=== PATIENT | female | born 1955 | race Caucasian/White ===

== ENCOUNTER 2016-10-06 07:34 | Emergency (ER) | payer BC ==
[2016-10-06] MEDS ORDERED: MORPHINE SULFATE 5 MG/ML PFS IVP ONE (08:12)
[2016-10-06] MEDS ORDERED: ONDANSETRON HCL IV 4 MG/2 ML VIAL IVP ONE (08:13)
[2016-10-06] MEDS ORDERED: 0.9 % SODIUM CHLORIDE 1000ML 500 ML IV SCH (08:15)
--- NOTE | 2016-10-06 08:18 | Emergency Department Record ---
History of Present Illness - General Chief complaint: Lower Extremity Pain Stated complaint: PAIN R LEG Time Seen by Provider: 10/06/16 08:12 Source: Patient Mode of Arrival: Ambulatory Limitations: No limitations - History of Present Illness Initial comments: 61 yo female presents to ED with a CC of right posterior leg pain radiating up to her right lower back that began yesterday. Patient denies injury or trauma, and patient denies fevers, chills, or recent illness. Patient denies flank pain or urinary symptoms, but the patient reports that she is unable to get comfortable. Patient reports history of DM II. MD Complaint: Extremity pain Onset/Timin -: Days(s) Location: Right, Lower Leg, Thigh Radiation: Proximal Severity scale (1-10): 10 Consistency: Constant Improves with: Nothing Worsens with: Nothing Associated Symptoms: Denies other symptoms - Related Data Home Medications Medication Instructions Recorded Confirmed Last Taken Benzonatate [Tessalon] 2 cap PO Q8H PRN 10/06/16 10/06/16 Unknown Glimepiride [Amaryl] 4 mg PO DAILY 10/06/16 10/06/16 Unknown Meclizine HCl [Antivert] 25 mg PO Q8H 10/06/16 10/06/16 Unknown Previous Rx's Medication Instructions Recorded Diazepam [Valium] 5 mg PO Q8H #10 tab 10/06/16 Naproxen [Naprosyn] 500 mg PO Q12H #30 tab 10/06/16 Allergies Allergy/AdvReac Type Severity Reaction Status Date / Time No Known Drug Allergies Allergy Verified 10/06/16 07:36 Travel Screening - Travel/Exposure Within Last 30 Days Have you traveled within the last 30 days?: No - Travel Symptoms Symptom Screening: None Review of Systems Constitutional: Denies: Chills, Fever, Malaise, Night sweats Eyes: Denies: Eye discharge, Eye pain ENT: Denies: Congestion, Ear pain, Epistaxis Respiratory: Denies: Cough, Dyspnea Cardiovascular: Denies: Chest pain, Dyspnea on exertion Endocrine: Denies: Fatigue, Heat or cold intolerance Gastrointestinal: Denies: Abdominal pain, Nausea, Vomiting Genitourinary: Denies: Dysuria, Frequency, Hematuria, Incontinence Musculoskeletal: Reports: Back pain, Myalgia. Denies: Gout, Joint swelling Skin: Denies: Bruising, Change in color Neurological: Denies: Abnormal gait, Confusion, Headache, Seizure Psychiatric: Denies: Anxiety Hematological/Lymphatic: Denies: Anemia, Blood Clots Past Medical History - SOCIAL HISTORY Smoking Status: Never smoker - RESPIRATORY Hx Respiratory Disorders: No - CARDIOVASCULAR Hx Cardio Disorders: No - NEURO Hx Neuro Disorders: No - GI Hx GI Disorders: Yes Hx Reflux: Yes - Hx Genitourinary Disorders: No - ENDOCRINE Hx Endocrine Disorders: Yes Hx Diabetes: Yes - MUSCULOSKELETAL Hx Musculoskeletal Disorders: Yes Hx Arthritis: Yes Comment:: Herpes zoster - PSYCH Hx Psych Problems: Yes Hx Depression: Yes - HEMATOLOGY/ONCOLOGY Hx Hematology/Oncology Disorders: No Family Medical History Any Significant Family History?: Yes Hx Cancer: Father, Grandparents Hx Diabetes: Mother Hx Heart Disease: Father Hx HTN: Father Physical Exam - General General Appearance: Alert, Oriented x3, Cooperative, Moderate distress, Other ( patient is tearful on examination, appears uncomfortable on examination.) - Head Head exam: Atraumatic, Normocephalic, Normal inspection Head exam detail: negative: Abrasion, Contusion, Polanco's sign, General tenderness, Hematoma, Laceration - Eye Eye exam: Normal appearance. negative: Conjunctival injection, Periorbital swelling, Periorbital tenderness, Scleral icterus - ENT Ear exam: negative: Auricular hematoma, Auricular trauma Nasal Exam: negative: Active bleeding, Discharge, Dried blood, Foreign body Mouth exam: negative: Drooling, Laceration, Muffled voice, Tongue elevation - Neck Neck exam: Normal inspection. negative: Meningismus, Tenderness - Respiratory Respiratory exam: Normal lung sounds bilaterally. negative: Rales, Respiratory distress, Rhonchi, Stridor - Cardiovascular Cardiovascular Exam: Regular rate, Normal rhythm, Normal heart sounds Peripheral Pulses: 3+: Dorsalis Pedis (R) - GI/Abdominal GI/Abdominal exam: Soft. negative: Rebound, Rigid, Tenderness - Rectal Rectal exam: Deferred - exam: Deferred - Extremities Extremities exam: Full ROM, Tenderness, Other (mild TTP along the popliteal region, posterior thigh, no evidence for knee effusion or septic joint, no flank pain on examination ). negative: Calf tenderness, Pedal edema - Back Back exam: Denies: CVA tenderness (R), CVA tenderness (L) - Neurological Neurological exam: Alert, Oriented X3 - Psychiatric Psychiatric exam: Normal affect, Normal mood - Skin Skin exam: Normal color. negative: Abrasion Type of lesion: negative: abrasion Course Vital Signs 10/06/16 07:50 Temperature 97.8 F Pulse Rate 108 H Respiratory 18 Rate Blood Pressure 139/97 Pulse Ox 97 - Reevaluation(s) Reevaluation #1: 10/06/16 09:03 Labs reviewed and are grossly unremarkable for an acute process. Patient is currently in US for evaluation. Reevaluation #2: 10/06/16 09:47 US doppler LE: No acute DVT Patient reassessed, reports that Morphine "did not help with my pain symptoms at all". Patient ambulated with steady gait to the bathroom to obtain UA sample. Will order Valium 2.5 mg IV. Reevaluation #3: 10/06/16 10:17 UA reviewed, appears contaminated, but only trace blood. Symptoms and the patient's UA do not appear c/w kidney stone. Patient appears stable for discharge home on Valium and Naprosyn for her back pain symptoms. Reevaluation #4: 10/06/16 10:23 Patient was updated on her results, and reports improvement in her symptoms following Valium IV. Patient appears stable for discharge at this time. Medical Decision Making - Lab Data Result diagrams: 10/06/16 08:30 10/06/16 08:30 Disposition Disposition: Discharge Clinical Impression: Low back pain Qualifiers: Chronicity: acute Back pain laterality: right Sciatica presence: with sciatica Sciatica laterality: sciatica of right side Qualified Code(s): M54.41 - Lumbago with sciatica, right side Disposition: Home, Self-Care Condition: (2) Stable Instructions: Low Back Strain (ED) Additional Instructions: Return to ED if your symptoms worsen or if you have any concerns. Valium and Naprosyn as directed. Follow-up with your family doctor in 1-3 days as directed. Prescriptions: Naproxen [Naprosyn] 500 mg PO Q12H #30 tab. Diazepam [Valium] 5 mg PO Q8H #10 tab Forms: Patient Portal Access Time of Disposition: 10:19
[2016-10-06 08:42] LABS: BASO % 0.3 % (0-6); EOS % 1.7 % (0-6); GRAN % 57.3 % (47-80); HEMATOCRIT 48.1 % (35.0-47.0); HEMOGLOBIN 16.1 gm/dl (11.6-16.0); LYMPH % 29.6 % (16-45); MEAN CELL VOLUME 82.2 fl (81-97); MEAN CORPUSCULAR HEMOGLOBIN 27.5 pg (27-33); MEAN CORPUSCULAR HGB CONC 33.5 g/dl (32-36); MEAN PLATELET VOLUME 11.4 fl (7.4-10.4); MONO % 11.1 % (0-9); PLATELET COUNT 193 K/uL (130-400); RED BLOOD COUNT 5.85 M/uL (3.80-5.40); WHITE BLOOD COUNT W/O DIFF 5.9 K/uL (4.2-12.2)
[2016-10-06 08:56] LABS: ALB/GLOB RATIO 1.5 (1.1-1.8); ALKALINE PHOSPHATASE 101 U/L (38-126); ALT/SGPT 62 U/L (9-52); ANION GAP 18.7 (7-16); AST/SGOT 34 U/L (14-36); BLOOD UREA NITROGEN 16 mg/dL (7-17); CARBON DIOXIDE 28.3 mmol/L (22-30); CREATININE 0.7 mg/dL (0.52-1.04); EST GLOMERULAR FILTRATION RATE > 60 ml/min; GLUCOSE,RANDOM 188 mg/dL (70-110); TOTAL PROTEIN 8.4 gm/dL (6.3-8.2)
[2016-10-06] MEDS ORDERED: DIAZEPAM 5 MG/1 ML TUBX IVP ONE (09:48)
[2016-10-06 09:55] LABS: URINE APPEARANCE CLEAR; URINE BILIRUBIN NEGATIVE (NEGATIVE); URINE BLOOD TRACE-I (NEGATIVE); URINE COLOR YELLOW; URINE KETONE 15 mg/dL (NEGATIVE); URINE LEUKOCYTE ESTERASE NEGATIVE (NEGATIVE); URINE NITRITE NEGATIVE (NEGATIVE); URINE PROTEIN NEGATIVE (NEGATIVE); URINE UROBILINOGEN 0.2 E.U./dL (0.20 - 1.00)
[2016-10-06 10:04] LABS: URINE GLUCOSE (UA) >=1000 mg/dL (NEGATIVE)
[2016-10-06 10:05] LABS: URINE BACTERIA FEW; URINE EPITHELIAL CELLS 36 - 50 (FEW); URINE WBC >50 (0-2/hpf)
--- NOTE | 2016-10-12 08:42 | US VENOUS DOPPLER REPORT ---
EXAM: EMERGENCY VENOUS DOPPLER ULTRASOUND OF THE RIGHT LOWER EXTREMITY HISTORY: RIGHT LOWER EXTREMITY PAIN. WOKE UP YESTERDAY WITH RIGHT LEG PAIN AND RIGHT KNEE PAIN. POSSIBLE DVT. TECHNIQUE: Venous Doppler ultrasound of the right lower extremity was performed with color flow and spectral analysis Doppler utilized. In addition, compression and flow augmentation maneuvers were utilized in the thigh and popliteal region. Comparison: None. FINDINGS: No evidence of DVT identified in the right lower extremity. Flow is seen with color flow and spectral analysis throughout the veins of the right lower extremity from the level of the common femoral vein down into the calf including the anterior and posterior tibial veins and peroneal vein. Flow augmentation and compressibility was seen in the veins of the thigh and popliteal region as well. IMPRESSION: NEGATIVE VENOUS DOPPLER ULTRASOUND OF THE RIGHT LOWER EXTREMITY WITH NO DVT IDENTIFIED. JOB NUMBER: [id number] MTDD
== END 2016-10-06 10:50 | disposition home or self-care (01) ==
LOC: ER 07:34
DX: M54.41 Lumbago with sciatica, right side (principal); E11.9 Type 2 diabetes mellitus without complications
CPT/HCPCS: 99284 ×2; 96374; 96375; 85025; 80053; 81001; 93971; J2405; J2270; J3360; J7030

== ENCOUNTER 2017-07-24 11:27 | Emergency (ER) | payer SELFPAY ==
[2017-07-24] MEDS ORDERED: KETOROLAC 30 MG/ML VIAL IM ONE (11:46)
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
[2017-07-24 12:07] LABS: URINE APPEARANCE CLEAR; URINE BILIRUBIN NEGATIVE (NEGATIVE); URINE BLOOD NEGATIVE (NEGATIVE); URINE COLOR YELLOW; URINE KETONE 15 mg/dL (NEGATIVE); URINE LEUKOCYTE ESTERASE TRACE (NEGATIVE); URINE NITRITE NEGATIVE (NEGATIVE); URINE UROBILINOGEN 0.2 E.U./dL (0.20 - 1.00)
[2017-07-24 12:15] LABS: BASO % 0.2 % (0-6); GRAN % 75.6 % (47-80); HEMATOCRIT 41.2 % (35.0-47.0); HEMOGLOBIN 14.1 gm/dl (11.6-16.0); LYMPH % 18.6 % (16-45); MEAN CELL VOLUME 83.1 fl (81-97); MEAN CORPUSCULAR HEMOGLOBIN 28.4 pg (27-33); MEAN CORPUSCULAR HGB CONC 34.2 g/dl (32-36); MEAN PLATELET VOLUME 10.6 fl (7.4-10.4); MONO % 4.6 % (0-9); PLATELET COUNT 234 K/uL (130-400); RED BLOOD COUNT 4.96 M/uL (3.80-5.40); RED CELL DISTRIBUTION WIDTH 13.4 % (11.5-14.5); WHITE BLOOD COUNT W/O DIFF 9.2 K/uL (4.2-12.2)
[2017-07-24 12:23] LABS: BLOOD UREA NITROGEN 14 mg/dL (8-23); CREATININE 0.7 mg/dL (0.5-0.9); EST GLOMERULAR FILTRATION RATE > 60 mL/min
[2017-07-24 12:26] LABS: GLUCOSE,RANDOM 227 mg/dL (74-109)
[2017-07-24] MEDS ORDERED: POTASSIUM CHLORIDE 20 MEQ TABLET PO ONE (12:43)
[2017-07-24 13:01] LABS: URINE BACTERIA 2+; URINE EPITHELIAL CELLS 21 - 35 (FEW); URINE MUCUS HEAVY; URINE WBC 21 - 35 (0-2/hpf)
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
== END 2017-07-24 13:36 | disposition home or self-care (01) ==
LOC: ER 11:27
DX: G89.11 Acute pain due to trauma (principal); M25.512 Pain in left shoulder; M25.552 Pain in left hip; R07.89 Other chest pain; E87.6 Hypokalemia; E11.9 Type 2 diabetes mellitus without complications; V43.52XA Car driver injured in collision with other type car in traffic accident, initial encounter
CPT/HCPCS: 99284 ×2; 96372; 85025; 80048; 81001; 72040; 73030; 73502; 93005; 93010; J1885